=== PATIENT | female | born 1980 | race Hispanic/Latino ===

== ENCOUNTER 2023-05-13 00:19 | Inpatient (IN) | payer OTHER ==
[~2023-05-13] VITALS: Ht 160 cm; Wt 83.0 kg
[2023-05-13 00:50] LABS: BASOPHILS # (AUTO) 0.11 K/uL (0.00-0.20); BASOPHILS % (AUTO) 0.9 % (0.0-5.0); EOSINOPHILS # (AUTO) 0.26 K/uL (0.00-0.70); EOSINOPHILS % (AUTO) 2.2 % (0.0-8.0); HEMATOCRIT 28.1 % (36-48); IMMATURE GRANULOCYTE ABSOLUTE 0.04 K/uL (0-1); LYMPHOCYTES # (AUTO) 1.9 K/uL (1.0-4.8); LYMPHOCYTES % (AUTO) 15.9 % (21.0-51.0); MEAN CORPUSCULAR HEMOGLOBIN 12.9 pg (27.0-33.0); MEAN CORPUSCULAR HGB CONC 25.3 g/dL (32.0-36.0); MEAN CORPUSCULAR VOLUME 51.1 fL (79-99); MONOCYTES % (AUTO) 8.2 % (3.0-13.0); NEUTROPHILS # (AUTO) 8.5 K/uL (1.8-7.7); NEUTROPHILS % (AUTO) 72.5 % (40.0-77.0); NUCLEATED RED BLOOD CELLS 0.3 % (0.0-0.19); RED CELL DISTRIBUTION WIDTH 23.9 % (11.0-15.5); WHITE BLOOD COUNT (AUTO) 11.7 K/uL (4.8-10.8)
[2023-05-13 01:01] LABS: PLATELET COUNT (AUTO) 767 K/uL (130-400)
[2023-05-13 01:04] LABS: CREATININE 0.9 mg/dL (0.5-1.0); POTASSIUM 4.8 mmol/L (3.5-5.1)
[2023-05-13 01:08] LABS: BILIRUBIN,TOTAL 0.4 mg/dL (0.2-1.0); TOTAL PROTEIN, SERUM 7.3 g/dL (6.0-8.3)
[2023-05-13] MEDS ORDERED: IOHEXOL 350 MG/ML 100ML INFUS..BTL IV ONE (02:09)
[2023-05-13 02:14] LABS: AMPHET/METH SCREEN,URINE NEGATIVE (NEGATIVE); BARBITURATE SCREEN, URINE NEGATIVE (NEGATIVE); BENZODIAZEPINES SCREEN,URINE NEGATIVE (NEGATIVE); CANNABINOID SCREEN,URINE NEGATIVE (NEGATIVE); COCAINE SCREEN,URINE NEGATIVE (NEGATIVE); OPIATE SCREEN,URINE NEGATIVE (NEGATIVE); PHENCYCLIDINE SCREEN,URINE NEGATIVE (NEGATIVE)
[2023-05-13 02:15] LABS: APPEARANCE,URINE CLOUDY (CLEAR); BILIRUBIN,URINE NEGATIVE (NEGATIVE); COLOR,URINE LIGHT-ORANGE (YELLOW); GLUCOSE, URINE (UA) NEGATIVE (NEGATIVE); KETONES,URINE NEGATIVE (NEGATIVE); LEUKOCYTE ESTERASE ,URINE 75 Leu/uL (NEGATIVE); NITRATE,URINE NEGATIVE (NEGATIVE); OCCULT BLOOD,URINE LARGE (NEGATIVE); PH,URINE 5.5 (5.0-8.0); PROTEIN,URINE 100 mg/dL (NEGATIVE); UROBILINOGEN,URINE 0.2 mg/dL (0.2-1.0)
[2023-05-13 02:19] LABS: ADD UA MICROSCOPIC YES
[2023-05-13 02:20] LABS: BACTERIA,URINE RARE /HPF (None Seen); MUCUS,URINE MANY LPF (None Seen); RBC,URINE TNTC /HPF (0-1); SQUAMOUS EPITHELIAL CELL,UR FEW /HPF (0-2)
[2023-05-13] MEDS: LIDOCAINE HCL 2% VISCOUS 15 ML UDCUP PO ONE (03:20)
[2023-05-13] MEDS: MAG/ALUM/SIMETH 30 ML UDCUP PO ONE (03:20)
[2023-05-13] MEDS: CEFTRIAXONE 2GM VIAL IVPB ONE (03:20)
[2023-05-13] MEDS: FAMOTIDINE 20MG VIAL IV ONE (03:20)
[2023-05-13] MEDS: METOCLOPRAMIDE 10 MG/2 ML VIAL IVP ONE (03:20)
[2023-05-13] MEDS: DICYCLOMINE HCL 10 MG/5 ML ML PO ONE (03:21)
[2023-05-13] MEDS ORDERED: ACETAMINOPHEN 325 MG TAB PO PRN ×2 (06:30)
[2023-05-13] MEDS ORDERED: CEFTRIAXONE 1G VIAL 1 GM in 0.9%NACL 50ML 50 ML IV SCH (06:30)
[2023-05-13] MEDS ORDERED: FAMOTIDINE 20MG VIAL IV PRN (06:30)
[2023-05-13] MEDS ORDERED: MORPHINE 2 MG SYG IV PRN (06:30)
[2023-05-13] MEDS: MORPHINE 4 MG SYG IV PRN (06:47)
[2023-05-13] MEDS: ONDANSETRON 4MG INJ IV PRN (06:47)
[2023-05-13] MEDS: 0.9%NACL 1000ML 1,000 ML IV SCH (07:33)
[2023-05-13 08:08] LABS: INR 1.08 (0.85-1.15); PROTHROMBIN TIME 12.7 SEC (9.6-11.6)
[2023-05-13 08:09] LABS: PARTIAL THROMBOPLASTIN TIME 29.9 SEC (26.3-35.5)
[2023-05-13 08:10] LABS: MAGNESIUM 2.4 mg/dL (1.80-2.40)
[2023-05-13] MEDS ORDERED: MAGNESIUM 2GM PREMIX 50ML 50 ML IV PRN (08:30)
[2023-05-13] MEDS ORDERED: POTASSIUM CHLORIDE 20MEQ/100ML 100 ML IV PRN (08:30)
[2023-05-13] MEDS ORDERED: POTASSIUM CHLORIDE 10% ELIXIR 20 MEQ/15 ML UDCUP PO PRN (08:30)
[2023-05-13 14:35] VITALS: BP 113/83; PULSE 116; RESP 18
[2023-05-13 15:00] VITALS: O2SAT 99
[2023-05-13] MEDS: ACETAMINOPHEN WITH CODEINE 1 TAB TAB PO PRN (18:05)
[2023-05-13 19:00] VITALS: BP 132/93; PULSE 111; RESP 18
[2023-05-13 21:17] VITALS: O2SAT 99
[2023-05-13 23:00] VITALS: BP 112/71; PULSE 99; RESP 16
[2023-05-14] VITALS (8 sets, daily range): BP systolic 118–151; BP diastolic 62–99; PULSE 65–122; RESP 17–20; O2SAT 95
[2023-05-14] MEDS: CEFTRIAXONE 1G VIAL IVPB SCH (02:08)
[2023-05-14 05:52] LABS: BASOPHILS # (AUTO) 0.09 K/uL (0.00-0.20); BASOPHILS % (AUTO) 0.9 % (0.0-5.0); EOSINOPHILS # (AUTO) 0.31 K/uL (0.00-0.70); EOSINOPHILS % (AUTO) 3.2 % (0.0-8.0); HEMATOCRIT 28.5 % (36-48); IMMATURE GRANULOCYTE ABSOLUTE 0.04 K/uL (0-1); LYMPHOCYTES # (AUTO) 1.4 K/uL (1.0-4.8); LYMPHOCYTES % (AUTO) 14.5 % (21.0-51.0); MEAN CORPUSCULAR HEMOGLOBIN 12.7 pg (27.0-33.0); MEAN CORPUSCULAR HGB CONC 23.5 g/dL (32.0-36.0); MEAN CORPUSCULAR VOLUME 54.1 fL (79-99); NEUTROPHILS # (AUTO) 6.8 K/uL (1.8-7.7); NUCLEATED RED BLOOD CELLS 0.2 % (0.0-0.19); RED BLOOD CELL COUNT(AUTO) 5.27 MIL/uL (4.00-5.50); RED CELL DISTRIBUTION WIDTH 23.6 % (11.0-15.5); WHITE BLOOD COUNT (AUTO) 9.6 K/uL (4.8-10.8)
[2023-05-14 05:56] LABS: PLATELET COUNT (AUTO) 705 K/uL (130-400)
[2023-05-14 06:00] LABS: CREATININE 0.8 mg/dL (0.5-1.0); MAGNESIUM 2.1 mg/dL (1.80-2.40); POTASSIUM 4.7 mmol/L (3.5-5.1)
[2023-05-14 06:58] LABS: HEMATOCRIT 26.2 % (36-48)
[2023-05-14 07:41] LABS: % IRON SATURATION 3.2 % (22-44)
[2023-05-14 08:42] LABS: RETICULOCYTE % (AUTO) 1.33 % (0.42-2.23)
[2023-05-14] MEDS: IRON SUCROSE COMPLEX 300 MG in 0.9% NACL 250ML 250 ML IV ONE (20:41)
[2023-05-15] VITALS (8 sets, daily range): BP systolic 130–158; BP diastolic 66–92; PULSE 98–120; RESP 16–18; O2SAT 93–94
[2023-05-15] MEDS: HYDROCODONE/ACETAMINOPHEN 5/325 MG TAB PO PRN (03:07)
[2023-05-15 05:41] LABS: CREATININE 0.7 mg/dL (0.5-1.0); POTASSIUM 4.5 mmol/L (3.5-5.1)
[2023-05-15 05:52] LABS: BASOPHILS % (AUTO) 0.9 % (0.0-5.0); EOSINOPHILS # (AUTO) 0.25 K/uL (0.00-0.70); EOSINOPHILS % (AUTO) 2.1 % (0.0-8.0); HEMATOCRIT 25.8 % (36-48); LYMPHOCYTES # (AUTO) 0.7 K/uL (1.0-4.8); LYMPHOCYTES % (AUTO) 5.7 % (21.0-51.0); MEAN CORPUSCULAR HGB CONC 24.4 g/dL (32.0-36.0); MEAN CORPUSCULAR VOLUME 53.1 fL (79-99); MONOCYTES # (AUTO) 0.7 K/uL (0.1-1.0); MONOCYTES % (AUTO) 6.3 % (3.0-13.0); NEUTROPHILS # (AUTO) 9.9 K/uL (1.8-7.7); NEUTROPHILS % (AUTO) 84.1 % (40.0-77.0); NUCLEATED RED BLOOD CELLS 0.4 % (0.0-0.19); PLATELET COUNT (AUTO) 668 K/uL (130-400); RED BLOOD CELL COUNT(AUTO) 4.86 MIL/uL (4.00-5.50); RED CELL DISTRIBUTION WIDTH 23.2 % (11.0-15.5); WHITE BLOOD COUNT (AUTO) 11.7 K/uL (4.8-10.8)
[2023-05-16] VITALS (18 sets, daily range): BP systolic 114–151; BP diastolic 49–88; PULSE 79–124; RESP 14–20; O2SAT 94–95
[2023-05-16 05:41] LABS: ALBUMIN 2.2 g/dL (3.5-5.0); BILIRUBIN,TOTAL 0.3 mg/dL (0.2-1.0); CREATININE 0.7 mg/dL (0.5-1.0); POTASSIUM 3.9 mmol/L (3.5-5.1); TOTAL PROTEIN, SERUM 5.9 g/dL (6.0-8.3)
[2023-05-16 05:51] LABS: BASOPHILS # (AUTO) 0.12 K/uL (0.00-0.20); EOSINOPHILS # (AUTO) 0.33 K/uL (0.00-0.70); EOSINOPHILS % (AUTO) 2.7 % (0.0-8.0); HEMATOCRIT 26.2 % (36-48); IMMATURE GRANULOCYTE ABSOLUTE 0.11 K/uL (0-1); LYMPHOCYTES # (AUTO) 1.5 K/uL (1.0-4.8); LYMPHOCYTES % (AUTO) 12.1 % (21.0-51.0); MEAN CORPUSCULAR HEMOGLOBIN 12.8 pg (27.0-33.0); MEAN CORPUSCULAR HGB CONC 23.3 g/dL (32.0-36.0); MEAN CORPUSCULAR VOLUME 54.8 fL (79-99); MONOCYTES # (AUTO) 1.3 K/uL (0.1-1.0); MONOCYTES % (AUTO) 10.5 % (3.0-13.0); NEUTROPHILS # (AUTO) 8.8 K/uL (1.8-7.7); NEUTROPHILS % (AUTO) 72.8 % (40.0-77.0); NUCLEATED RED BLOOD CELLS 0.4 % (0.0-0.19); RED BLOOD CELL COUNT(AUTO) 4.78 MIL/uL (4.00-5.50); RED CELL DISTRIBUTION WIDTH 23.6 % (11.0-15.5); WHITE BLOOD COUNT (AUTO) 12.1 K/uL (4.8-10.8)
[2023-05-16 05:55] LABS: PLATELET COUNT (AUTO) 703 K/uL (130-400)
[2023-05-16 13:04] LABS: APPEARANCE BODY FLUID CLEAR (CLEAR); COLOR,BODY FLUID YELLOW (LT YELLOW); SPECIMENTYPE,BODY FLUID ASCITES; TOTAL VOLUME,BODY FLUID 6800 mL
[2023-05-16 13:07] LABS: BODY FLUID RBC 1328 /cu. mm.; BODY FLUID WBC 679 /cu. mm.
[2023-05-16] MEDS: IRON SUCROSE COMPLEX 300 MG in 0.9% NACL 250ML 250 ML IV SCH (13:45)
[2023-05-16 15:57] LABS: BF LYMPHOCYTE 16 %; BF MACROPHAGE 46; BF MONOCYTE 1 %; BF OTHER CELLS 15; BF TOTAL CELLS COUNTED 100
[2023-05-16] MEDS: ALBUMIN (HUMAN) 25% 200 ML IV SCH (22:03)
[2023-05-16 23:04] LABS: HEMATOCRIT 28.9 % (36-48)
[2023-05-17] VITALS (8 sets, daily range): BP systolic 116–150; BP diastolic 65–81; PULSE 106–117; RESP 16–18; O2SAT 95–99
[2023-05-17 07:42] LABS: ALBUMIN 2.5 g/dL (3.5-5.0); BILIRUBIN,TOTAL 0.5 mg/dL (0.2-1.0); CREATININE 0.6 mg/dL (0.5-1.0); POTASSIUM 3.6 mmol/L (3.5-5.1); TOTAL PROTEIN, SERUM 5.7 g/dL (6.0-8.3)
[2023-05-17 08:17] LABS: BASOPHILS # (AUTO) 0.11 K/uL (0.00-0.20); EOSINOPHILS # (AUTO) 0.17 K/uL (0.00-0.70); EOSINOPHILS % (AUTO) 1.5 % (0.0-8.0); HEMATOCRIT 28.7 % (36-48); IMMATURE GRANULOCYTE ABSOLUTE 0.13 K/uL (0-1); LYMPHOCYTES % (AUTO) 8.4 % (21.0-51.0); MEAN CORPUSCULAR HEMOGLOBIN 14.7 pg (27.0-33.0); MEAN CORPUSCULAR HGB CONC 25.4 g/dL (32.0-36.0); MEAN CORPUSCULAR VOLUME 57.9 fL (79-99); MONOCYTES # (AUTO) 1.2 K/uL (0.1-1.0); MONOCYTES % (AUTO) 10.7 % (3.0-13.0); NEUTROPHILS # (AUTO) 8.8 K/uL (1.8-7.7); NEUTROPHILS % (AUTO) 77.3 % (40.0-77.0); NUCLEATED RED BLOOD CELLS 0.5 % (0.0-0.19); PLATELET COUNT (AUTO) 580 K/uL (130-400); RED BLOOD CELL COUNT(AUTO) 4.96 MIL/uL (4.00-5.50); RED CELL DISTRIBUTION WIDTH 28.7 % (11.0-15.5); WHITE BLOOD COUNT (AUTO) 11.4 K/uL (4.8-10.8)
[2023-05-17] MEDS ORDERED: COMPOUND IV MISC 1 EACH IVSOLN MISC PRN (12:00)
[2023-05-18] VITALS (7 sets, daily range): BP systolic 110–139; BP diastolic 67–79; PULSE 101–111; RESP 16–20; O2SAT 94
[2023-05-18 05:37] LABS: BASOPHILS # (AUTO) 0.08 K/uL (0.00-0.20); BASOPHILS % (AUTO) 0.6 % (0.0-5.0); EOSINOPHILS # (AUTO) 0.22 K/uL (0.00-0.70); EOSINOPHILS % (AUTO) 1.8 % (0.0-8.0); HEMATOCRIT 31.3 % (36-48); IMMATURE GRANULOCYTE ABSOLUTE 0.12 K/uL (0-1); LYMPHOCYTES # (AUTO) 1.5 K/uL (1.0-4.8); LYMPHOCYTES % (AUTO) 12.3 % (21.0-51.0); MEAN CORPUSCULAR HEMOGLOBIN 14.8 pg (27.0-33.0); MEAN CORPUSCULAR HGB CONC 24.9 g/dL (32.0-36.0); MEAN CORPUSCULAR VOLUME 59.3 fL (79-99); MONOCYTES # (AUTO) 1.4 K/uL (0.1-1.0); MONOCYTES % (AUTO) 11.3 % (3.0-13.0); NEUTROPHILS # (AUTO) 9.2 K/uL (1.8-7.7); NUCLEATED RED BLOOD CELLS 0.3 % (0.0-0.19); PLATELET COUNT (AUTO) 601 K/uL (130-400); RED BLOOD CELL COUNT(AUTO) 5.28 MIL/uL (4.00-5.50); WHITE BLOOD COUNT (AUTO) 12.5 K/uL (4.8-10.8)
[2023-05-18 06:00] LABS: ALBUMIN 2.2 g/dL (3.5-5.0); BILIRUBIN,TOTAL 0.4 mg/dL (0.2-1.0); CREATININE 0.7 mg/dL (0.5-1.0); POTASSIUM 3.6 mmol/L (3.5-5.1); TOTAL PROTEIN, SERUM 5.8 g/dL (6.0-8.3)
[2023-05-18] MEDS: KCL 20 MEQ ERTAB PO PRN (13:10)
[2023-05-19 03:51] VITALS: BP 115/57; PULSE 92; RESP 18
[2023-05-19 05:38] LABS: BASOPHILS # (AUTO) 0.07 K/uL (0.00-0.20); BASOPHILS % (AUTO) 0.7 % (0.0-5.0); EOSINOPHILS # (AUTO) 0.25 K/uL (0.00-0.70); EOSINOPHILS % (AUTO) 2.3 % (0.0-8.0); HEMATOCRIT 32.6 % (36-48); IMMATURE GRANULOCYTE ABSOLUTE 0.08 K/uL (0-1); LYMPHOCYTES # (AUTO) 1.2 K/uL (1.0-4.8); LYMPHOCYTES % (AUTO) 11.7 % (21.0-51.0); MEAN CORPUSCULAR HEMOGLOBIN 14.9 pg (27.0-33.0); MEAN CORPUSCULAR HGB CONC 24.5 g/dL (32.0-36.0); MEAN CORPUSCULAR VOLUME 60.8 fL (79-99); MONOCYTES # (AUTO) 1.2 K/uL (0.1-1.0); MONOCYTES % (AUTO) 10.9 % (3.0-13.0); NEUTROPHILS # (AUTO) 7.8 K/uL (1.8-7.7); NEUTROPHILS % (AUTO) 73.6 % (40.0-77.0); PLATELET COUNT (AUTO) 561 K/uL (130-400); RED BLOOD CELL COUNT(AUTO) 5.36 MIL/uL (4.00-5.50); RED CELL DISTRIBUTION WIDTH 32.9 % (11.0-15.5); WHITE BLOOD COUNT (AUTO) 10.6 K/uL (4.8-10.8)
[2023-05-19 05:57] LABS: ALBUMIN 1.7 g/dL (3.5-5.0); BILIRUBIN,TOTAL 0.3 mg/dL (0.2-1.0); CREATININE 0.6 mg/dL (0.5-1.0); POTASSIUM 4.4 mmol/L (3.5-5.1); TOTAL PROTEIN, SERUM 5.2 g/dL (6.0-8.3)
[2023-05-19 08:00] VITALS: BP 109/71; PULSE 95; RESP 16; O2SAT 100
[2023-05-19] MEDS ORDERED: ACET-2079 PO (11:25)
[2023-05-19] MEDS ORDERED: CEPH500B PO (11:47)
== END 2023-05-19 11:50 | disposition home or self-care (01) | DRG 375 ==
LOC: EDH 00:19 → EDHIP 00:20 → 3BH 13:29
PROVIDERS: ADMIT Hospitalist; ATTEND Hospitalist
PROC: 30233N1 Transfusion of Nonautologous Red Blood Cells into Peripheral Vein, Percutaneous Approach (ICD-10-PCS; principal; 2023-05-16)
PROC: 0W9G30Z Drainage of Peritoneal Cavity with Drainage Device, Percutaneous Approach (ICD-10-PCS; 2023-05-16)
PROC: 0W9G30Z Drainage of Peritoneal Cavity with Drainage Device, Percutaneous Approach (ICD-10-PCS; 2023-05-18)
DX: C78.6 Secondary malignant neoplasm of retroperitoneum and peritoneum (principal); E87.1 Hypo-osmolality and hyponatremia; R18.8 Other ascites; N39.0 Urinary tract infection, site not specified; D69.6 Thrombocytopenia, unspecified; E86.0 Dehydration; N93.9 Abnormal uterine and vaginal bleeding, unspecified; D50.0 Iron deficiency anemia secondary to blood loss (chronic); N83.9 Noninflammatory disorder of ovary, fallopian tube and broad ligament, unspecified; Z80.0 Family history of malignant neoplasm of digestive organs; Z80.1 Family history of malignant neoplasm of trachea, bronchus and lung
CPT/HCPCS: 36415; 36430; 49083; 71045; 74178; 76856; 80048; 80053; 80305; 81001; 82150; 82378; 82550; 82607; 82728; 83605; 83690; 83735; 84145; 84484; 84703; 85014; 85018; 85025; 85610; 85651; 85730; 86304; 86316; 86850; 86900; 86901; 86923; 87071; 87088; 87205; 89051; 93005; C1729; G0378; J0696; J1756; J2270; J2405; J2765; J3490; J7050; P9016; P9046; Q9967

== ENCOUNTER 2023-05-21 23:47 | Inpatient (IN) | payer OTHER ==
[~2023-05-21] VITALS: Ht 160 cm; Wt 83.2 kg
[~2023-05-21 23:47] MED LIST: ACET-2079 PO; CEPH500B PO
[2023-05-22] VITALS (7 sets, daily range): BP systolic 116–137; BP diastolic 73–77; PULSE 86–106; RESP 16–18; O2SAT 96
[2023-05-22 00:43] LABS: CREATININE 0.6 mg/dL (0.5-1.0); POTASSIUM 4.4 mmol/L (3.5-5.1)
[2023-05-22 00:46] LABS: INR 1.12 (0.85-1.15); PROTHROMBIN TIME 13.1 SEC (9.6-11.6)
[2023-05-22 00:47] LABS: PARTIAL THROMBOPLASTIN TIME 31.9 SEC (26.3-35.5)
[2023-05-22 00:49] LABS: RAPID GROUP A STREP negative (NEGATIVE)
[2023-05-22 00:50] LABS: ALBUMIN 1.8 g/dL (3.5-5.0); BASOPHILS # (AUTO) 0.07 K/uL (0.00-0.20); BASOPHILS % (AUTO) 0.6 % (0.0-5.0); BILIRUBIN,TOTAL 0.3 mg/dL (0.2-1.0); EOSINOPHILS # (AUTO) 0.28 K/uL (0.00-0.70); EOSINOPHILS % (AUTO) 2.2 % (0.0-8.0); HEMATOCRIT 34.3 % (36-48); IMMATURE GRANULOCYTE ABSOLUTE 0.08 K/uL (0-1); LYMPHOCYTES # (AUTO) 1.2 K/uL (1.0-4.8); LYMPHOCYTES % (AUTO) 9.4 % (21.0-51.0); MEAN CORPUSCULAR HEMOGLOBIN 15.7 pg (27.0-33.0); MEAN CORPUSCULAR HGB CONC 25.4 g/dL (32.0-36.0); MONOCYTES # (AUTO) 1.2 K/uL (0.1-1.0); MONOCYTES % (AUTO) 9.7 % (3.0-13.0); NEUTROPHILS # (AUTO) 9.7 K/uL (1.8-7.7); NEUTROPHILS % (AUTO) 77.5 % (40.0-77.0); PLATELET COUNT (AUTO) 694 K/uL (130-400); RED BLOOD CELL COUNT(AUTO) 5.53 MIL/uL (4.00-5.50); RED CELL DISTRIBUTION WIDTH 36.4 % (11.0-15.5); WHITE BLOOD COUNT (AUTO) 12.5 K/uL (4.8-10.8)
[2023-05-22 00:54] LABS: SARS-CoV-2, RNA, NAAT NEGATIVE SARS CoV-2 (NEGATIVE)
[2023-05-22 00:59] LABS: INFLUENZA TYPE A Negative For Type A (NEGATIVE); INFLUENZA TYPE B Negative For Type B (NEGATIVE)
[2023-05-22 01:11] LABS: B-TYPE NATRIURETIC PEPTIDE < 5 pg/mL (0-100)
[2023-05-22 02:17] LABS: APPEARANCE,URINE CLOUDY (CLEAR); BILIRUBIN,URINE NEGATIVE (NEGATIVE); COLOR,URINE YELLOW (YELLOW); GLUCOSE, URINE (UA) NEGATIVE (NEGATIVE); KETONES,URINE NEGATIVE (NEGATIVE); LEUKOCYTE ESTERASE ,URINE 25 Leu/uL (NEGATIVE); NITRATE,URINE NEGATIVE (NEGATIVE); OCCULT BLOOD,URINE LARGE (NEGATIVE); PH,URINE 5.5 (5.0-8.0); PROTEIN,URINE 30 mg/dL (NEGATIVE)
[2023-05-22 02:18] LABS: ADD UA MICROSCOPIC YES
[2023-05-22 02:19] LABS: BACTERIA,URINE MOD /HPF (None Seen); MUCUS,URINE MANY LPF (None Seen); RBC,URINE >100 /HPF (0-1); SQUAMOUS EPITHELIAL CELL,UR FEW /HPF (0-2)
[2023-05-22 02:20] LABS: HCG,QUALITATIVE URINE NEGATIVE (NEGATIVE)
[2023-05-22] MEDS: KETOROLAC 30MG VIAL (30MG/ML) IVP ONE (02:46)
[2023-05-22] MEDS ORDERED: ACETAMINOPHEN 325 MG TAB PO PRN ×2 (03:30)
[2023-05-22] MEDS ORDERED: ACETAMINOPHEN WITH CODEINE 1 TAB TAB PO PRN (03:30)
[2023-05-22] MEDS ORDERED: MORPHINE 2 MG SYG IV PRN (03:30)
[2023-05-22] MEDS: 0.9%NACL 1000ML 1,000 ML IV SCH (04:14)
[2023-05-22] MEDS: FAMOTIDINE 20MG VIAL IV SCH (09:24)
[2023-05-22] MEDS: CEFTRIAXONE 1G VIAL IV SCH (09:24)
[2023-05-22] MEDS: ACETAMINOPHEN WITH CODEINE 1 TAB TAB PO PRN (23:12)
[2023-05-23 03:46] LABS: BASOPHILS # (AUTO) 0.09 K/uL (0.00-0.20); BASOPHILS % (AUTO) 0.8 % (0.0-5.0); EOSINOPHILS # (AUTO) 0.39 K/uL (0.00-0.70); EOSINOPHILS % (AUTO) 3.6 % (0.0-8.0); HEMATOCRIT 31.4 % (36-48); IMMATURE GRANULOCYTE ABSOLUTE 0.05 K/uL (0-1); LYMPHOCYTES # (AUTO) 1.1 K/uL (1.0-4.8); LYMPHOCYTES % (AUTO) 10.2 % (21.0-51.0); MEAN CORPUSCULAR HGB CONC 25.8 g/dL (32.0-36.0); MEAN CORPUSCULAR VOLUME 62.2 fL (79-99); MONOCYTES # (AUTO) 1.3 K/uL (0.1-1.0); NEUTROPHILS # (AUTO) 7.8 K/uL (1.8-7.7); NEUTROPHILS % (AUTO) 72.9 % (40.0-77.0); PLATELET COUNT (AUTO) 685 K/uL (130-400); RED BLOOD CELL COUNT(AUTO) 5.05 MIL/uL (4.00-5.50); WHITE BLOOD COUNT (AUTO) 10.7 K/uL (4.8-10.8)
[2023-05-23 04:08] VITALS: BP 124/69; PULSE 96; RESP 18
[2023-05-23 04:12] LABS: ALBUMIN 1.5 g/dL (3.5-5.0); BILIRUBIN,TOTAL 0.2 mg/dL (0.2-1.0); CREATININE 0.8 mg/dL (0.5-1.0); POTASSIUM 4.5 mmol/L (3.5-5.1); TOTAL PROTEIN, SERUM 5.4 g/dL (6.0-8.3)
[2023-05-23 08:00] VITALS: BP 128/62; PULSE 90; RESP 17; O2SAT 94
[2023-05-23] MEDS: CYANOCOBALAMIN (VITAMIN B-12) 1,000 MCG TABLET PO SCH (08:23)
[2023-05-23] MEDS ORDERED: COMPOUND IV REFRIGERATED 1 EACH IVSOLN MISC PRN (08:30)
[2023-05-23] MEDS: ONDANSETRON 4MG INJ IV PRN (08:48)
[2023-05-23] MEDS: FOLIC ACID 5 MG/ML VIAL IV SCH (11:42)
[2023-05-23 12:00] VITALS: BP 127/65; PULSE 90; RESP 17
[2023-05-23 16:00] VITALS: BP 120/71; PULSE 97; RESP 16
[2023-05-23 20:00] VITALS: BP 126/69; PULSE 103; RESP 20
[2023-05-24] VITALS: BP 120/67; PULSE 96; RESP 18
[2023-05-24 04:00] VITALS: BP 108/68; PULSE 81; RESP 18
[2023-05-24] MEDS ORDERED: FOLI0.4T6 PO (07:05)
[2023-05-24] MEDS ORDERED: CYAN-106 PO (07:05)
[2023-05-24 08:00] VITALS: BP 126/70; PULSE 100; RESP 15
== END 2023-05-24 11:20 | disposition home or self-care (01) | DRG 391 ==
LOC: EDH 23:47 → EDHIP 23:48 → 4DH 05-22 04:52
PROVIDERS: ADMIT Hospitalist; ATTEND Hospitalist
DX: R19.09 Other intra-abdominal and pelvic swelling, mass and lump (principal); E43 Unspecified severe protein-calorie malnutrition; R18.8 Other ascites; Z20.822 Contact with and (suspected) exposure to COVID-19; E61.1 Iron deficiency; D64.9 Anemia, unspecified; D69.6 Thrombocytopenia, unspecified; Z80.0 Family history of malignant neoplasm of digestive organs; Z80.1 Family history of malignant neoplasm of trachea, bronchus and lung; Z85.43 Personal history of malignant neoplasm of ovary; Z68.32 Body mass index [BMI] 32.0-32.9, adult
CPT/HCPCS: 36415; 71045; 76705; 80053; 81001; 81025; 82550; 83605; 83880; 84145; 84484; 85025; 85610; 85651; 85730; 87040; 87088; 87635; 87804; 87880; 93005; 93970; G0378; J0696; J1885; J2405; J3490